=== PATIENT | male | born 1995 | race Hispanic/Latino ===

== ENCOUNTER 2023-02-26 15:41 | Emergency (ER) | payer BC, OTHER ==
[2023-02-26] MEDS ORDERED: Ketorolac Tromethamine 30 MG/ML VIAL ONE (16:03)
== END 2023-02-26 16:32 | disposition home or self-care (01) ==
LOC: CSHERS 15:41
DX: S63.502A Unspecified sprain of left wrist, initial encounter (principal); X50.9XXA Other and unspecified overexertion or strenuous movements or postures, initial encounter
CPT/HCPCS: 96372; J1885